=== PATIENT | female | born 1965 | race Caucasian/White ===

== ENCOUNTER 2025-04-11 14:00 | Outpatient (RCR) | payer MEDICAID, SELFPAY ==
--- NOTE | 2025-02-05 14:36 | HP.PTEVAL_ITS ---
Patient's Visit Information Visit Information Visit Information: GONZALO SLATER is a 59 year old F referred to Physical Therapy by Dr. Sulema Looney MD with a diagnosis of R KNEE. Date of Evaluation: 02/05/25 Physical Therapist: Suly Hough PT, Cert MDT Visit Plan Frequency: 2x /Week Duration: 4-6 Weeks Plan: AQUATIC THERAPY FOR R LE PAIN RELIEF, DESENSITIZATION, AND EDEMA REDUCTION. GAIT AND BALANCE TRAINING ON LEVEL SURFACES. R LE ROM, STRETCHING AND STRENGTHENING. ADD STAIR TRAINING R LE STRENGTH AND ROM IMPROVES. INCORPORATE CORE STRENGTH AND STABILITY TRAINING. HEP INSTRUCTION AND INDEP POOL EX INSTRUCTION TO SUPPLEMENT THERAPY APPROPRIATE. 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 ALSO C/O PAIN ABOVE AND BELOW KNEE. C/O NUMBNESS AND TINGLING ANTERIOR KNEE. WEAKNESS. LIMITED STANDING AND WALKING. Present since: ABOUT 2 YEARS AGO. Pain Scale: WORST 8/10, LEAST 3/10 Currently: 4/10 Is it getting better, worse or staying the same: STAYING THE SAME Commenced as a result of: RELATES ONSET OF PAIN ABOUT 2 YEARS AGO TO ARTHRITIS. RELATES CURRENT PAIN TO NO APPARENT REASON OTHER THAN HEALING PAIN - I DON'T KNOW WHY. Worse: STAIRS, TRYING TO SQUAT - I CAN NOT SQUAT, TRYING TO MOW GRASS (PATIENT MOWS HER OWN GRASS WITH SELF PROPELLED MOWER BUT STATES IT TAKES HER A REALLY LONG TIME AND THEN SHE SUFFERS FOR DAYS). SHOPPING (CAN'T GO TO [place] BECAUSE IT IS TOO BIG), TOO MUCH STANDING, TOO MUCH WALKING. STATES SHE USE TO WALK HER DOGS 5 MILES A DAY AND DOESN'T WALK THEM AT ALL NOW BECAUSE THEY WANT TO GO AND SHE CAN'T WALK FAST. LIVES IN ONE STORY HOME WITH BASEMENT. LAUNDRY IS IN GARAGE WITH 2 STEPS IN/OUT WITH RAIL. Better: NOTHING Disturbed sleep: Previous history/Previous treatment: STARTED TO HAVE TERRIBLE KNEE PAIN ABOUT 2 YEARS AGO AND DECIDED TO HAVE TKR. STATES SHE HAS NEVER BEEN OK SINCE. THE PAIN NOW IS DIFFERENT AND SHE DESCRIBES IT MORE LIKE NERVE PAIN. Treatment this episode: R TKR 09/12/2024. 18 VISITS [facility]. NERVE BLOCK PENDING IF BONE SCAN RESULTS ARE OK (BONE SCAN PENDING TOMORROW). ON GABAPENTIN, PRESCRIPTION PAIN CREAM Gait: CURRNTLY NOT USING ANY AD'S. Bowel or Bladder Dysfunction: NO Accidents: NO Unexplained weight loss: NO Imaging: BONE SCAN PENDING TOMORROW. STATES SHE HAS ALSO HAD RECENT R KNEE X- RAYS DONE IN [place] THAT WERE NORMAL. PMH/Recent major surgery: AFIB - ON BLOOD THINNERS. Objective Objective: THIS PATIENT AMBULATES INDEP'LY INTO PT LIMPING ON R LE WITHOUT ANY AD'S OR LOB. Other Observations: STS WITHOUT UE ASSIST PUTTING MOST WEIGHT ON L LE BUT STILL C/O INCREASED R LE PAIN WITH ONE REPETITION. Sensory deficit: PATIENT C/O NUMBNESS AND TENDERNESS WITH LIGHT TOUCH TESTING OF R ANTERIOR AND LATERAL R KNEE REGIONS COMPARED TO L KNEE. ALSO C/O HYPERSENSATIVITIY OF R DISTAL ANTERIOR THIGH AND R PROXIMAL TIBIA REGIONS COMPARED TO LEFT. ROM deficit: SUPINE R KNEE AROM: 0-0-96 deg flexion. SUPINE L KNEE AROM: 0-0-125 deg flexion. R KNEE EXT LAG OF 5 DEG IN SITTING. Motor deficit: R HIP 4-/5, R KNEE EXT 3-/5, KNEE FLEX 4-/5 (MID RANGE), R ANKLE DORSI FLEX 5/5, PLANTAR FLEX 5/5. LLE - 5/5. CIRCUMFERENCE MEASUREMENTS: JT LINE - R 50 CM, L 45 CM 6 PROX TO PATELLA - R 69.5 CM, L 69.5 CM 6 DISTAL TO PATELLA - R 39 CM, L 38 CM Core strength: FAIR Balance/Special Test Scores Lower Extremity Functional Score: 24 Goals Goal 1:: PATIENT WILL HAVE DECREASED EDEMA IN RLE SYMMETRICAL TO LLE. Goal Time Frame: 6-8 Weeks Goal 2:: PATIENT WILL HAVE INCREASED R KNEE ROM TO AT LEAST 0-120 DEG FLEXION. Goal Time Frame: 6-8 Weeks Goal 3:: PATIENT WILL HAVE INCREASED RLE STRENGTH TO 5/5 THROUGHT ALLOWING FOR INCREASED STABILITY WITH ALL GAIT ACTIVITIES. Goal Time Frame: 6-8 Weeks Goal 4:: PATIENT WILL HAVE NORMALIZED GAIT PATTERN WITHOUT USE OF AD ON LEVEL SURFACES. Goal Time Frame: 6-8 Weeks Goal 5:: PATIENT WILL BE ABLE TO NEGOTIATE STEPS WITH 1 HR WITH RECIPROCAL PATTERN WITHOUT LIMITATIONS. Goal Time Frame: 8-12 Weeks Goal 6:: PATIENT TO REPORT 0-2/10 R KNEE PAIN OR LESS WITH ALL ACTIVITIES. Goal Time Frame: 8-12 Weeks Rehabilitation Potential Physical Therapy Diagnosis: R KNEE PAIN, SWELLING, STIFFNESS AND WEAKNESS WITH CORE AND HIP WEAKNESS AND LIMITED STANDING, WALKING AND ADL FUNCTION. Rehabilitation Potential: Good Anticipated Interventions Patient/Client Instruction: Educate patient on: Condition, Plan of Care and Risk Factors For the Purpose of:: To improve self management Therapeutic Exercise to Include: Strength training, Flexibilty training, Gait and locomotor training, Neuromotor development and In an aquatic setting For the Purpose of:: To decrease pain, To increase ROM, To improve muscle performance and motor function, To increase tolerance to activity/condition/position, To improve performance and independence with ADL's, To improve ability of physical actions for home/community/work/leisure, To improve gait and locomotor functions, To decrease soft tissue restriction, To increase flexibility/ROM and To improve self management Text: Thank you for the opportunity to evaluate your patient. For Medicare and Medicare HMO plans, please review the plan of care and approve it. It will need to be FAXED BACK to us at [phone] for Medicare purposes. For Medicare only, by signing this I certify the plan of care. Please let me know if there are questions or concerns regarding this plan of care. Physician Signature: Date:
--- NOTE | 2025-03-17 12:54 | HP.PTREVAL ---
Re-Evaluation Intro: Dr. Sulema Looney MD, It has been my pleasure to treat GONZALO SLATER over the last 10 visits for R KNEE. Please see the progress note below for an update on the physical therapy plan of care! Subjective Subjective: PATIENT REPROTS HER KNEE IS DOING BETTER - ABOUT 80% BETTER - BUT THERE IS ALWAYS SOME PAIN THERE. PATIENT REPORTS SHE IS DEFINATELY BETTER SINCE STARTING POOL THERAPY. SHE STATES SHE HAS LESS PAIN AND SHE CAN MOW HER GRASS BETTER. SHE REPORTS IT FEELS GOOD TO EXERCISE AND SHE IS SLEEPING BETTER. SHE REPORTS HER PAIN RANGES FROM 2/10 TO 6/10 NOW. Objective Objective/Function: PATIENT WAS SEEN TODAY FOR RE-ASSESSMENT OF PROGRESS TOWARD THE SET PT GOALS AND THE NEED FOR FURTHER PHYSICAL THERAPY VS READINESS FOR DISCHARGE. SHE IS MAKING SLOW PROGRESS TOWARD ALL PT GOALS. SHE IS A GOOD CANDIDATE TO CONTINUE PT BASED ON PROGRESS MADE AND ROOM FOR FURTHER IMPROVEMENT. PATIENT IS AGREEABLE. UPON EXAM TODAY: STS WITHOUT UE ASSIST LLE WB>R BUT NEAR SYMMETRICAL NOW, . Sensory deficit: DECREASED LIGHT TOUCH SENSATION R ANTERIOR KNEE COMPARED TO L. ROM deficit: SUPINE R KNEE AROM: 0-0-114 deg flexion. SUPINE L KNEE AROM: 0-0-125 deg flexion. FULL R KNEE ACTIVE EXT WITHOUT LAG NOW. Motor deficit: R HIP 4/5, R KNEE EXT 3+/5, KNEE FLEX 4/5 (MID RANGE), R ANKLE DORSI FLEX 5/5, PLANTAR FLEX 5/5. LLE - 5/5. CIRCUMFERENCE MEASUREMENTS: JT LINE - R 48 CM, L 45 CM 6 PROX TO PATELLA - R 69.5 CM, L 69.5 CM 6 DISTAL TO PATELLA - R 39 CM, L 38 CM Core strength: FAIR STEPS: ASCENDS RECIPROCAL WITH ONE HR AND DESCENDS RECIPROCAL WITH 2 HR'S. CUEING NEEDED FOR PROPER TECHNIQUE ON STEPS AND FURTHER TRAINING NEEDED. Plan Plan Plan: CONTINUE PT 1-2 X'S A WK X 4-6 WKS: AQUATIC THERAPY FOR R LE PAIN RELIEF, DESENSITIZATION, AND EDEMA REDUCTION. GAIT AND BALANCE TRAINING ON LEVEL SURFACES. R LE ROM, STRETCHING AND STRENGTHENING. ADD STAIR TRAINING R LE STRENGTH AND ROM IMPROVES. INCORPORATE CORE STRENGTH AND STABILITY TRAINING. HEP INSTRUCTION AND INDEP POOL EX INSTRUCTION TO SUPPLEMENT THERAPY APPROPRIATE. Balance/Gait/Functional tests Balance/Special Test Scores Lower Extremity Functional Score: 38 Goals Goals Goal 1:: PATIENT WILL HAVE DECREASED EDEMA IN RLE SYMMETRICAL TO LLE. Goal Time Frame: 6-8 Weeks Goal Progress: Progressing Goal 2:: PATIENT WILL HAVE INCREASED R KNEE ROM TO AT LEAST 0-120 DEG FLEXION. Goal Time Frame: 6-8 Weeks Goal Progress: Progressing Goal 3:: PATIENT WILL HAVE INCREASED RLE STRENGTH TO 5/5 THROUGHT ALLOWING FOR INCREASED STABILITY WITH ALL GAIT ACTIVITIES. Goal Time Frame: 6-8 Weeks Goal 4:: PATIENT WILL HAVE NORMALIZED GAIT PATTERN WITHOUT USE OF AD ON LEVEL SURFACES. Goal Time Frame: 6-8 Weeks Goal Progress: Progressing Goal 5:: PATIENT WILL BE ABLE TO NEGOTIATE STEPS WITH 1 HR WITH RECIPROCAL PATTERN WITHOUT LIMITATIONS. Goal Time Frame: 8-12 Weeks Goal Progress: Progressing Goal 6:: PATIENT TO REPORT 0-2/10 R KNEE PAIN OR LESS WITH ALL ACTIVITIES. Goal Time Frame: 8-12 Weeks Goal Progress: Progressing Anticipated Interventions Anticipated Interventions Patient/Client Instruction: Educate patient on: Condition, Plan of Care and Risk Factors For the Purpose of:: To improve self management Therapeutic Exercise to Include: Strength training, Flexibilty training, Gait and locomotor training, Neuromotor development and In an aquatic setting For the Purpose of:: To decrease pain, To increase ROM, To improve muscle performance and motor function, To increase tolerance to activity/condition/position, To improve performance and independence with ADL's, To improve ability of physical actions for home/community/work/leisure, To improve gait and locomotor functions, To decrease soft tissue restriction, To increase flexibility/ROM and To improve self management Re-Evaluation Ending Re-evaluation ending: Please do not hesitate to contact me at [phone] by phone or if you have questions or concerns regarding this new plan of care! Sincerely, Suly Hough, PT, Cert MDT
--- NOTE | 2025-04-25 16:26 | HP.PT.NRP ---
Patient Information Patient Information: GONZALO SLATER was seen in my office for initial evaluation on 02/05/25. The following Plan of Care was established for this patient: POC Established Initial Frequency: 2x /Week Initial Duration: 4-6 Weeks Anticipated Interventions Patient/Client Instruction: Educate patient on: Condition, Plan of Care and Risk Factors For the Purpose of:: To improve self management Therapeutic Exercise to Include: Strength training, Flexibilty training, Gait and locomotor training, Neuromotor development and In an aquatic setting For the Purpose of:: To decrease pain, To increase ROM, To improve muscle performance and motor function, To increase tolerance to activity/condition/position, To improve performance and independence with ADL's, To improve ability of physical actions for home/community/work/leisure, To improve gait and locomotor functions, To decrease soft tissue restriction, To increase flexibility/ROM and To improve self management Last Seen Last Seen: This patient was last seen in our office 04/11/25. Pertinent comments regarding their Physical therapy will appear below: It has been my pleasure to see this patient for a total of 12 visits. This patient was becoming indep in a pool program and was working on deciding on which facility to continue at as her last therapy visit was approaching. Her therapy authorization has and she is appropriate to return to [facility] for further follow-up as needed. At this point I will be discontinuing this patient from physical therapy. I would be happy to see this patient again in the future if found appropriate by the physician. Thank you! Suly Hough, PT, Cert MDT Balance/Gait/Functional tests Balance/Special Test Scores Lower Extremity Functional Score: 38
== END 2025-04-11 19:00 | disposition home or self-care (01) ==
LOC: PT 14:00
PROVIDERS: Referring Provider Anesthesiology; Visit Provider Anesthesiology
DX: M25.569 Pain in unspecified knee (principal); G89.29 Other chronic pain; Z96.659 Presence of unspecified artificial knee joint; T84.84XD Pain due to internal orthopedic prosthetic devices, implants and grafts, subsequent encounter
CPT/HCPCS: 97110; 97113; 97162; 97530